=== PATIENT | male | born 1980 | race Caucasian/White ===

== ENCOUNTER → 2017-08-02 | Outpatient (CLI) | payer OTHER ==
--- NOTE | 2017-08-02 12:24 | REP ---
Right thumb four views: I suspect there is a nondisplaced fracture at the base of the thumb distal phalange. There is no dislocation. Mineralization is normal. Impression: Fracture base of the distal phalange. Signed by Chi Salas MD 08/02/2017 12:14 P
== END ==
LOC: M WUC 11:11
PROVIDERS: ATTEND Physician Assistant Medical
DX: S62.524A Nondisplaced fracture of distal phalanx of right thumb, initial encounter for closed fracture (principal); X58.XXXA Exposure to other specified factors, initial encounter; Y93.9 Activity, unspecified; Y92.9 Unspecified place or not applicable; Y99.8 Other external cause status

== ENCOUNTER 2018-06-25 10:13 | Emergency (ER) | payer OTHER, SELFPAY ==
[2018-06-25] MEDS: PERCOCET 5MG/325MG TAB PO (10:54)
[2018-06-25] MEDS: BACLOFEN 10 MG TAB PO (10:54)
== END 2018-06-25 11:35 | disposition home or self-care (01) ==
LOC: M ED 10:13
DX: S16.1XXA Strain of muscle, fascia and tendon at neck level, initial encounter (principal); S46.911A Strain of unspecified muscle, fascia and tendon at shoulder and upper arm level, right arm, initial encounter; V28.0XXA Motorcycle driver injured in noncollision transport accident in nontraffic accident, initial encounter; Y92.9 Unspecified place or not applicable; Y93.9 Activity, unspecified; Y99.9 Unspecified external cause status; Z72.0 Tobacco use; Z88.0 Allergy status to penicillin
CPT/HCPCS: 73030

== ENCOUNTER → 2022-09-27 | Outpatient (CLI) | payer OTHER ==
[~2022-09-27] MED LIST: BACL10TA2 PO
== END ==
LOC: M PLAIMG 08:53
PROVIDERS: ATTEND Physician Assistant Surgical
DX: S46.011A Strain of muscle(s) and tendon(s) of the rotator cuff of right shoulder, initial encounter (principal); X58.XXXA Exposure to other specified factors, initial encounter; Y92.9 Unspecified place or not applicable; Y93.9 Activity, unspecified; Y99.9 Unspecified external cause status; M65.811 Other synovitis and tenosynovitis, right shoulder

== ENCOUNTER 2022-11-22 17:02 | Emergency (ER) | payer OTHER ==
[~2022-11-22] VITALS: Ht 170.2 cm; Wt 72.7 kg
[2022-11-22 17:03] VITALS: BP 136/64
[2022-11-22 18:14] LABS: BASO # 0.1 10^3/uL (0.0-0.2); BASO % 1.2 % (0.0-1.0); EOS # 0.2 10^3/uL (0.0-0.5); EOS % 2.8 % (0.0-3.0); HEMATOCRIT 44.2 % (42.0-52.0); HEMOGLOBIN 14.6 g/dl (13.5-17.5); LYMPH # 3.3 10^3/uL (1.5-5.0); LYMPH % 37.7 % (24.0-44.0); MEAN CORPUSCULAR HEMOGLOBIN 30.1 pg (27.0-33.0); MEAN CORPUSCULAR VOLUME 91.1 fl (80.0-96.0); MONO # 0.8 10^3/uL (0.0-0.8); MONO % 8.7 % (2.0-8.0); NEUTROPHILS # 4.3 10^3/uL (1.5-8.5); NEUTROPHILS % 49.3 % (36.0-66.0); PLATELET COUNT, AUTOMATED 365 10^3/uL (150-450); RED BLOOD COUNT 4.85 10^6/uL (4.30-6.10); WHITE BLOOD COUNT 8.7 10^3/uL (4.0-10.0)
[2022-11-22 18:30] LABS: ALBUMIN 3.7 G/DL (3.2-5.2); ALKALINE PHOSPHATASE 95 U/L (46-116); ALT/SGPT 21 U/L (7.0-40); AST/SGOT 31 U/L (<34); BILIRUBIN,DIRECT < 0.1 MG/DL (<0.4); BILIRUBIN,TOTAL 0.4 MG/DL (0.3-1.2); BLOOD UREA NITROGEN 13 MG/DL (9-23); CALCIUM LEVEL 8.6 MG/DL (8.5-10.1); CARBON DIOXIDE LEVEL 27 MMOL/L (20-31); CHLORIDE LEVEL 104 MMOL/L (98-107); CK-MB VALUE MASS 1.9 NG/ML (<3.6); CREATININE FOR GFR 0.75 MG/DL (0.70-1.30); GLOMERULAR FILTRATION RATE > 60.0 (>60); GLUCOSE, FASTING 91 MG/DL (60-100); SODIUM LEVEL 138 MMOL/L (136-145); TOTAL PROTEIN 6.5 G/DL (5.7-8.2)
[2022-11-22 18:31] LABS: CPK CREATINE PHOSPHOKINASE 266 U/L (46-171); MB/CK RELATIVE INDEX 0.71 (< OR =4)
== END 2022-11-22 19:30 | disposition left against medical advice (07) ==
LOC: M ED 17:02
DX: Z53.21 Procedure and treatment not carried out due to patient leaving prior to being seen by health care provider (principal)

== ENCOUNTER 2022-11-26 10:46 | Emergency (ER) | payer OTHER ==
[~2022-11-26] VITALS: Ht 170.2 cm; Wt 72.7 kg
[2022-11-26 11:34] LABS: BASO # 0.1 10^3/uL (0.0-0.2); BASO % 0.9 % (0.0-1.0); EOS # 0.1 10^3/uL (0.0-0.5); EOS % 1.1 % (0.0-3.0); HEMATOCRIT 48.6 % (42.0-52.0); LYMPH # 2.4 10^3/uL (1.5-5.0); LYMPH % 19.5 % (24.0-44.0); MEAN CORPUSCULAR HEMOGLOBIN 29.9 pg (27.0-33.0); MEAN CORPUSCULAR HGB CONC 32.9 g/dl (32.0-36.5); MEAN CORPUSCULAR VOLUME 90.7 fl (80.0-96.0); MONO # 0.8 10^3/uL (0.0-0.8); MONO % 6.4 % (2.0-8.0); NEUTROPHILS # 8.8 10^3/uL (1.5-8.5); NEUTROPHILS % 71.6 % (36.0-66.0); PLATELET COUNT, AUTOMATED 390 10^3/uL (150-450); RED BLOOD COUNT 5.36 10^6/uL (4.30-6.10); WHITE BLOOD COUNT 12.3 10^3/uL (4.0-10.0)
[2022-11-26 11:59] LABS: BLOOD UREA NITROGEN 11 MG/DL (9-23); CALCIUM LEVEL 9.2 MG/DL (8.5-10.1); CARBON DIOXIDE LEVEL 30 MMOL/L (20-31); CHLORIDE LEVEL 102 MMOL/L (98-107); CREATININE FOR GFR 0.78 MG/DL (0.70-1.30); GLOMERULAR FILTRATION RATE > 60.0 (>60); GLUCOSE, FASTING 100 MG/DL (60-100); POTASSIUM SERUM 4.7 MMOL/L (3.5-5.1); SODIUM LEVEL 138 MMOL/L (136-145)
[2022-11-26 12:00] LABS: CPK CREATINE PHOSPHOKINASE 231 U/L (46-171); MB/CK RELATIVE INDEX 0.86 (< OR =4)
[2022-11-26 12:16] VITALS: BP 135/87
[2022-11-26] MEDS ORDERED: GI COCKTAIL 50ML BTL(HYOSCYAMINE/MAALOX/LIDOCAINE VISCOUS)(1:3:1) PO ONE (12:35)
[2022-11-26] MEDS ORDERED: ISOVUE-370 76% 100ML VIAL As Ordered ONE (12:39)
[2022-11-26 12:40] LABS: INR 0.92; PROTHROMBIN TIME 12.6 SECONDS (12.5-14.5)
[2022-11-26 12:41] LABS: PARTIAL THROMBOPLASTIN TIME 30.3 SECONDS (24.8-34.2)
[2022-11-26 12:48] LABS: CK-MB VALUE MASS 1.6 NG/ML (<3.6)
[2022-11-26 12:49] LABS: CPK CREATINE PHOSPHOKINASE 207 U/L (46-171); MB/CK RELATIVE INDEX 0.77 (< OR =4)
[2022-11-26 12:53] LABS: ALBUMIN 3.9 G/DL (3.2-5.2); BILIRUBIN,DIRECT 0.2 MG/DL (<0.4); BILIRUBIN,TOTAL 0.7 MG/DL (0.3-1.2); FREE T4 1.1 NG/DL (0.89-1.76); THYROID STIMULATING HORMONE 0.933 uIU/ML (0.55-4.78); TOTAL PROTEIN 6.7 G/DL (5.7-8.2)
[2022-11-26] MEDS ORDERED: CARA1TAB6 PO (13:39)
[2022-11-26] MEDS ORDERED: NEXI40CA PO (13:39)
== END 2022-11-26 14:22 | disposition home or self-care (01) ==
LOC: M ED 10:46
DX: K29.70 Gastritis, unspecified, without bleeding (principal); M54.12 Radiculopathy, cervical region; I48.91 Unspecified atrial fibrillation; F17.200 Nicotine dependence, unspecified, uncomplicated; F12.10 Cannabis abuse, uncomplicated; Z88.0 Allergy status to penicillin

== ENCOUNTER 2025-02-20 18:04 | Emergency (ER) | payer OTHER ==
[~2025-02-20] VITALS: Ht 170.2 cm; Wt 69.6 kg
[~2025-02-20 18:04] MED LIST changes: +CARA1TAB6 PO; +NEXI40CA PO
[2025-02-20] MEDS ORDERED: ISOVUE-370 76% 100ML VIAL As Ordered ONE (18:37)
[2025-02-20 18:58] LABS: BASO # 0.1 10^3/uL (0.0-0.2); BASO % 1.2 % (0.0-1.0); EOS # 0.2 10^3/uL (0.0-0.5); EOS % 2.2 % (0.0-3.0); HEMATOCRIT 41.7 % (42.0-52.0); HEMOGLOBIN 14.2 g/dl (13.5-17.5); LYMPH # 2.6 10^3/uL (1.5-5.0); LYMPH % 31.6 % (24.0-44.0); MEAN CORPUSCULAR HEMOGLOBIN 30.1 pg (27.0-33.0); MEAN CORPUSCULAR HGB CONC 34.1 g/dl (32.0-36.5); MEAN CORPUSCULAR VOLUME 88.3 fl (80.0-96.0); MONO # 0.6 10^3/uL (0.0-0.8); MONO % 7.6 % (2.0-8.0); NEUTROPHILS # 4.7 10^3/uL (1.5-8.5); PLATELET COUNT, AUTOMATED 343 10^3/uL (150-450); RED BLOOD COUNT 4.72 10^6/uL (4.30-6.10); WHITE BLOOD COUNT 8.3 10^3/uL (4.0-10.0)
[2025-02-20 19:11] LABS: INR 0.84; PARTIAL THROMBOPLASTIN TIME 27.9 SECONDS (24.8-34.2); PROTHROMBIN TIME 11.8 SECONDS (12.5-14.5)
[2025-02-20] MEDS: MORPHINE 4 MG/ML 1ML VIAL IV ONE (19:18)
[2025-02-20] MEDS: NS (Normal Saline) 0.9% 1,000 ML IV ONE (19:18)
[2025-02-20 19:23] LABS: ALBUMIN 3.9 G/DL (3.2-5.2); ALKALINE PHOSPHATASE 91 U/L (40-129); ALT/SGPT 29 U/L (7.0-40); AST/SGOT 37 U/L (<34); BILIRUBIN,DIRECT 0.2 MG/DL (<0.4); BILIRUBIN,TOTAL 0.6 MG/DL (0.3-1.2); BLOOD UREA NITROGEN 11 MG/DL (9-23); CARBON DIOXIDE LEVEL 26 MMOL/L (20-31); CHLORIDE LEVEL 106 MMOL/L (98-107); CREATININE FOR GFR 0.73 MG/DL (0.70-1.30); GLOMERULAR FILTRATION RATE > 90.0 (>60); GLUCOSE, FASTING 95 MG/DL (60-100); POTASSIUM SERUM 4.2 MMOL/L (3.5-5.1); SODIUM LEVEL 139 MMOL/L (136-145); TOTAL PROTEIN 6.9 G/DL (5.7-8.2)
[2025-02-20] MEDS: fentaNYL 100 MCG/2 ML INJECTION IV ONE (19:50)
[2025-02-20 19:52] VITALS: TEMP 97.9
[2025-02-20 21:00] VITALS: BP 134/81; O2SAT 96
== END 2025-02-20 21:35 | disposition home or self-care (01) ==
LOC: M ED 18:04 → EDBD 18:04 → M ED 21:35
DX: S30.811A Abrasion of abdominal wall, initial encounter (principal); S60.811A Abrasion of right wrist, initial encounter; S60.812A Abrasion of left wrist, initial encounter; S70.211A Abrasion, right hip, initial encounter; M25.511 Pain in right shoulder; M79.642 Pain in left hand; M79.675 Pain in left toe(s); V28.49XA Other motorcycle driver injured in noncollision transport accident in traffic accident, initial encounter; Y92.9 Unspecified place or not applicable; Y93.89 Activity, other specified; Y99.9 Unspecified external cause status; I48.91 Unspecified atrial fibrillation; F17.200 Nicotine dependence, unspecified, uncomplicated; Z88.0 Allergy status to penicillin
CPT/HCPCS: 70450; 71260; 72125; 72128; 72131; 73030; 73080; 73110; 73130; 73502; 73630; 74177; 80047; 80048; 80076; 85025; 85610; 85730; 86850; 86900; 86901; 93041; 94760; 96361; 96374; 96375; 99285; J3010; Q9967

== ENCOUNTER → 2025-02-27 | Outpatient (CLI) | payer OTHER | LOC: M SOG 07:48 | PROVIDERS: ATTEND Physician Assistant | DX: M25.512 Pain in left shoulder (principal) ==